=== PATIENT | male | born 1990 | race African-American/Black ===

== ENCOUNTER → 2018-07-09 | Outpatient (REF) | payer OTHER ==
[2018-07-09 10:10] LABS: SEMEN APPEARANCE OPAQUE (OPAQUE); SEMEN VISCOSITY LIQUID (LIQUID); SEMEN VOLUME 1.5 ml (4.0-5.0)
[2018-07-09 10:11] LABS: SPERM CONCENTRATION 19.6 M/ml (>=15.0); WBC CONCENTRATION >1 M/ml (<=1 M/ml)
== END ==
LOC: M LAB REF 09:32
PROVIDERS: ATTEND Physician Assistant
DX: Z31.41 Encounter for fertility testing (principal)

== ENCOUNTER 2018-12-01 19:24 | Emergency (ER) | payer OTHER ==
[~2018-12-01] VITALS: Ht 182.9 cm; Wt 109.1 kg
--- NOTE | 2018-12-01 21:31 | REP ---
Clinical: Trauma. Technique: AP, lateral, bilateral oblique and sunrise views right knee . Findings: The osseous structures and joint spaces are intact and normal. There is no evidence for acute fracture or dislocation. No joint effusion is appreciated. Surrounding soft tissues are unremarkable. No subcutaneous emphysema or radiodense foreign body. Impression: Normal right knee examination. No acute fracture or dislocation. Electronically Signed by Rodríguez Jiménez MD 12/01/2018 09:24 P
[2018-12-01] MEDS ORDERED: KETOROLAC 60 MG/2 ML VIAL (J1885) IM ONE (22:15)
[2018-12-01] MEDS ORDERED: NAPR-885 PO (22:46)
[2018-12-01 23:01] VITALS: BP 122/70
== END 2018-12-01 23:06 | disposition home or self-care (01) ==
LOC: M ED 19:24
DX: M25.561 Pain in right knee (principal); X50.1XXA Overexertion from prolonged static or awkward postures, initial encounter; Y92.830 Public park as the place of occurrence of the external cause; Y93.67 Activity, basketball; Y99.9 Unspecified external cause status
CPT/HCPCS: 73564; 96372; 99283; J1885

== ENCOUNTER → 2020-05-11 | Outpatient (CLI) | payer OTHER ==
[~2020-05-11] MED LIST: NAPR-885 PO
--- NOTE | 2020-05-12 16:19 | ECHO ---
DATE OF PROCEDURE: 05/11/2020 Age: 29 Gender: Male Height: 72 inches Weight: 240 pounds Body surface area: 2.30 m2 PATIENT LOCATION: Outpatient. REFERRING PHYSICIAN: Kalin Meadows M.D. INDICATION: Cardiovascular disorder. MEASUREMENTS: 2D Measurements: RV 3.8 cm LV 4.2 cm Septum 1.1 cm Posterior wall 1.1 cm Aortic Root 2.9 cm LA 3.2 cm LVEF 75% Doppler Measurements: AV 1.2 m/s LVOT 1.13 m/s LVOT diameter 2.0 cm MV-E 74, A 53, E/A ratio 1.4 Early mitral deceleration time 162 msec E prime medial 7.1, A prime medial 6.8, E prime lateral 12 Average E/E prime ratio 7.7/PCWP 11.5 mmHg PV 0.85 m/s Pulmonary artery acceleration time 147 msec RVSP 16 mmHg IVC 1.6 cm COMMENTS: Normal sinus rhythm/sinus bradycardia without intraventricular conduction disturbance. M-mode and two-dimensional echocardiography was performed with pulse, continuous wave, color flow, and tissue Doppler studies. Normal left ventricular size, wall thickness, and hyperkinetic wall motion. Normal left atrial size and Doppler assessment of LV diastolic function and estimated mean left atrial pressure. Normal right heart chamber sizes and motion and estimated pulmonary arterial pressure. Normal IVC size and collapse against an elevated central venous pressure. Normal aortic dimensions. Normal appearing and functioning aortic valve. Normal appearing mitral valve with trace insufficiency (physiologic). Normal appearing tricuspid valve with very mild insufficiency (physiologic). No apparent intracardiac mass or pericardial effusion. MTDD
== END ==
LOC: M CARPUL 09:32
PROVIDERS: ATTEND Internal Medicine
DX: Z13.6 Encounter for screening for cardiovascular disorders (principal)